=== PATIENT | male | born 1980 | race Caucasian/White ===

== ENCOUNTER 2019-10-15 21:23 | Emergency (ER) | payer BC, OTHER ==
[~2019-10-15] VITALS: Ht 190.5 cm; Wt 81.6 kg
--- NOTE | 2019-10-15 21:45 | NUR ---
PT AAOX4. AMBULATORY WITH STEADY GAIT. BIBSELF C/O PENIS GOT BIGGER. UPON ASSESSMENT PT STATED HE HAD UNPROFECTED SEX ON MONDAY AND STATED "IT WAS 90% UNPROTECTED, [facility]." PT'S DESCRIBED PENIS TO BE "WATERY" AWAITING MD FOR EVAL. NO ACUTE DISTRESS NOTED. VSS.
--- NOTE | 2019-10-15 22:23 | NUR ---
URINE COLLECTED AND SENT TO LAB
[2019-10-15 22:34] LABS: APPEARANCE,URINE Clear (CLEAR); BILIRUBIN,URINE Negative (NEGATIVE); BLOOD, URINE Negative Ery/uL (NEGATIVE); COLOR,URINE Yellow (YELLOW); KETONES,URINE Negative (NEGATIVE); LEUKOCYTE ESTERASE ,URINE Negative (NEGATIVE); NITRITE, URINE Negative (NEGATIVE); PROTEIN,URINE Negative (NEGATIVE); UGLUCOSE Negative (NEGATIVE); UROBILINOGEN,URINE 0.2 EU/dL (0.2)
== END 2019-10-15 23:25 | disposition home or self-care (01) ==
LOC: ER 21:25
DX: S30.21XA Contusion of penis, initial encounter (principal); X58.XXXA Exposure to other specified factors, initial encounter; Y93.9 Activity, unspecified; Y92.89 Other specified places as the place of occurrence of the external cause; Y99.8 Other external cause status
CPT/HCPCS: 81000-TC; 87086-TC; 87491; 87591